=== PATIENT | female | born 1935 | race Caucasian/White ===

== ENCOUNTER 2017-03-16 16:31 | Inpatient (IN) | payer OTHER, MEDICARE ==
[~2017-03-16] VITALS: Ht 162.6 cm; Wt 87.0 kg
[~2017-03-16 16:31] MED LIST: ALEV220T14 PO; ASPI81TA82 PO; AZOR PO; BISO10TA2 PO; CALC-137 PO; FISH1000 PO; GLUCTAB PO; MELA3TAB23 PO; OMEP20CA5 PO; PRED1TAB PO; PROBCAP4 PO; PYRI60 PO; STOO100T PO; VERA40TA PO; VITA5000 PO
[2017-03-23] MEDS ORDERED: ONDANSETRON HCL 4 MG/2 ML VIAL IV PUSH ONE (12:00)
[2017-03-23] MEDS ORDERED: PROPOFOL 200 MG/20 ML AMP IV ONE (12:00)
[2017-03-23] MEDS ORDERED: NORMOSOL R INJ 1,000 ML IV ONE (12:00)
--- NOTE | 2017-03-23 12:54 | PD.HP.UP ---
H&P Update Note The Pre-Admit History and Physical Examination regarding the above named patient was reviewed (including, but not limited to, vital signs, heart, lungs, co-morbid conditions), and upon re-examination it is noted that: the patient's condition has not significantly changed since the last examination. Marcin Garcia MD Mar 23, 2017 12:54
[2017-03-23] MEDS ORDERED: PANC3600 PO (13:21)
[2017-03-23] MEDS ORDERED: FISH1200 PO (13:21)
[2017-03-23] MEDS ORDERED: CALC600T25 PO (13:21)
[2017-03-23] MEDS ORDERED: ASPI81TA81 PO (13:21)
[2017-03-23] MEDS ORDERED: VITA100064 PO (13:21)
[2017-03-23] MEDS ORDERED: LIDOCAINE 1%/EPINEPHrine 1:100,000 SOLN 20 ML VIAL ONE ×2 (13:26)
[2017-03-23] MEDS ORDERED: DEXT 5%-NACL 0.9% 1000 ML INJ 1,000 ML IV SCH (13:30)
[2017-03-23] MEDS ORDERED: LACTATED RINGER'S 1000 ML IV PRN (13:30)
[2017-03-23] MEDS ORDERED: METRONIDAZOLE 500 MG/100 ML ISONTONIC SOLN IV SCH (13:30)
[2017-03-23] MEDS ORDERED: ceFAZolin 1,000 MG/NS 100 ML IV SCH ×2 (13:30)
[2017-03-23] MEDS ORDERED: INSULIN HUMAN REGULAR 1,000 UNITS/10 ML VIAL SQ PRN (13:30)
[2017-03-23] MEDS ORDERED: CHLORHEXIDINE GLUCONATE 2 % 1 PACK (2 CLOTHS) TOPICAL PRN (13:30)
[2017-03-23] MEDS ORDERED: ALVIMOPAN 12 MG CAPSULE - On Call PO SCH (13:30)
[2017-03-23] MEDS ORDERED: METOPROLOL TARTRATE 25 MG TAB PO PRN (13:30)
[2017-03-23] MEDS ORDERED: POVIDONE IODINE 5% (ANTISEPSIS KIT) 4 APPLICATIONS EACH NARE PRN (13:30)
[2017-03-23] MEDS ORDERED: SODIUM CHLORID 0.9% 500 ML IV PRN (13:30)
[2017-03-23] MEDS ORDERED: AZOR10TA4 PO (13:34)
[2017-03-23] MEDS ORDERED: PRED2.5T PO (13:36)
[2017-03-23] MEDS ORDERED: PRED20 PO (13:36)
[2017-03-23 13:48] VITALS: BP 134/91; PULSE 103; RESP 18; TEMP 99; O2SAT 95
--- NOTE | 2017-03-23 13:53 | RADRPT ---
EXAM DATE/TIME: 03/23/2017 13:11 [place] COMPARISON: No previous studies available for comparison. INDICATIONS : Evaluate for pneumoina,pneumothorax and communicable disease surgery for rectal prolapes. MEDICAL HISTORY : None. SURGICAL HISTORY : None. ENCOUNTER: Initial ACUITY: 1 day PAIN SCORE: 0/10 LOCATION: Bilateral chest FINDINGS: A single view of the chest demonstrates the lungs to be symmetrically aerated without evidence of mas s, infiltrate or effusion. The cardiomediastinal contours are unremarkable. Osseous structures are intact. CONCLUSION: 1. Mild cardiomegaly. No acute abnormality identified. Danyel Blankenship MD on March 23, 2017 at 13:51 Board Certified Radiologist. This report was verified electronically.
[2017-03-23] MEDS ORDERED: SILVER SULFADIAZINE/LIDOCAINE CREAM 60 GM JAR EXTERNAL PRN (14:30)
[2017-03-23] MEDS ORDERED: FAMOTIDINE 20 MG/2 ML VIAL ONE (14:37)
[2017-03-23] MEDS ORDERED: DEXAMETHASONE SOD PHOS 4 MG/ML VIAL ONE (14:37)
[2017-03-23] MEDS ORDERED: MIDAZOLAM HCL 2 MG/2 ML VIAL ONE (14:37)
[2017-03-23] MEDS ORDERED: ACETAMINOPHEN 1000 MG/100 ML VIAL IV ONE (14:37)
[2017-03-23] MEDS ORDERED: SUGAMMADEX SODIUM 200 MG/2 ML VIAL IV PUSH ONE ×2 (16:27)
[2017-03-23] MEDS ORDERED: ACETAMINOPHEN 325 MG TAB PO PRN (17:00)
[2017-03-23] MEDS ORDERED: NALOXONE HCL 0.4 MG/ML AMP IV PRN (17:00)
[2017-03-23] MEDS ORDERED: ENALAPRILAT 1.25 MG/ML VIAL IV PRN (17:00)
[2017-03-23] MEDS ORDERED: Post-op Orders (for Pharmacy) MISC XX ONE (17:00)
[2017-03-23] MEDS ORDERED: ONDANSETRON HCL 4 MG/2 ML VIAL IV PRN (17:00)
[2017-03-23] MEDS ORDERED: NON-FORMULARY DRUG (Amlodipine-Olmesartan (Azor) 1 TAB) PO SCH (17:00)
[2017-03-23] MEDS ORDERED: BENZOCAINE 6 MG/MENTHOL 10 MG LOZENGE BUCCAL PRN (17:00)
[2017-03-23] MEDS ORDERED: POTASSIUM CHLOR 20 MEQ PREMIX 100 ML IV PRN (17:00)
[2017-03-23] MEDS ORDERED: ENALAPRILAT 2.5 MG/2 ML VIAL IV PRN (17:00)
[2017-03-23] MEDS ORDERED: MORPHINE SULFATE 30 MG/30 ML PCA IV SCH (17:00)
[2017-03-23] MEDS ORDERED: SODIUM CHLORIDE 0.9% FLUSH 5 ML FLUSH IVF PRN (17:00)
[2017-03-23] MEDS ORDERED: POTASSIUM CHLOR 40 MEQ PREMIX 100 ML IV PRN (17:00)
[2017-03-23] MEDS: D5-NS + KCL 20 MEQ INJ 1,000 ML IV SCH (17:30)
[2017-03-23] MEDS: LIPASE/PROTEASE/AMYLASE (12,000/38,000/60,000) CAP PO SCH (18:30)
[2017-03-23] MEDS: LOSARTAN 50 MG TAB PO SCH (18:30)
[2017-03-23] MEDS ORDERED: KETOROLAC TROMETHAMINE 30 MG/ML (IVP) VIAL IVP PRN (19:00)
[2017-03-23 20:00] VITALS: BP 133/78; PULSE 101; PULSE 99; RESP 18; TEMP 98.2; O2SAT 97
[2017-03-23] MEDS: SODIUM CHLORIDE 0.9% FLUSH 5 ML FLUSH IVF SCH (21:00)
[2017-03-23] MEDS: metroNIDAZOLE 500 MG INJ 100 ML IV SCH (21:26)
[2017-03-23] MEDS: METOCLOPRAMIDE HCL 10 MG/2 ML VIAL IVS SCH (21:26)
[2017-03-23] MEDS: PCA - TOTAL MG MORPHINE DELIVERED PER SHIFT SCH (21:57)
[2017-03-23 22:00] VITALS: PULSE 104
[2017-03-23] MEDS ORDERED: predniSONE 5 MG TAB PO SCH (22:00)
[2017-03-23 23:00] VITALS: PULSE 88
[2017-03-24] VITALS (9 sets, daily range): BP systolic 110–168; BP diastolic 67–79; PULSE 68–95; RESP 16–20; TEMP 97.9–98.7; O2SAT 94–97
[2017-03-24] MEDS: D5-NS + KCL 20 MEQ INJ 1,000 ML IV SCH ×2 (00:01→13:53)
[2017-03-24] MEDS: PCA - TOTAL MG MORPHINE DELIVERED PER SHIFT SCH ×3 (06:00→20:20)
[2017-03-24 06:23] LABS: AUTOMATED NEUTROPHIL # 10.1 TH/MM3 (1.8-7.7); BASOPHIL % 0.3 % (0.0-2.0); HEMATOCRIT 36.2 % (35.0-46.0); HEMO FLAGS DIFF FINAL; LYMPH % 5.5 % (9.0-44.0); LYMPHOCYTE # 0.6 TH/MM3 (1.0-4.8); MEAN CELL VOLUME 86.7 FL (80.0-100.0); MEAN CORPUSCULAR HEMOGLOBIN 28.7 PG (27.0-34.0); MONO % 4.5 % (0.0-8.0); NEUT % 89.7 % (16.0-70.0); PLATELET COUNT 228 TH/MM3 (150-450); RED BLOOD COUNT 4.18 MIL/MM3 (4.00-5.30); RED CELL DISTRIBUTION WIDTH 14.2 % (11.6-17.2); WHITE BLOOD COUNT 11.2 TH/MM3 (4.0-11.0)
[2017-03-24] MEDS: metroNIDAZOLE 500 MG INJ 100 ML IV SCH ×2 (06:27→15:08)
[2017-03-24 06:33] LABS: BICARBONATE 26.6 MEQ/L (21.0-32.0); POTASSIUM 4.2 MEQ/L (3.5-5.1)
--- NOTE | 2017-03-24 07:44 | HHI.PR ---
Subjective Remarks C/R Surg POD# 1 afebrile, VSS UO good Objective - Vital Signs Date Time Temp Pulse Resp B/P Pulse Ox O2 Delivery O2 Flow Rate FiO2 03/24/17 06:00 18 03/24/17 04:00 98.3 77 131/76 96 03/23/17 19:45 Nasal Cannula 3 Result Diagram: 03/24/17 0607 03/24/17 0607 Objective Remarks PE alert Abd - soft, wound dry, min tympany A/P Assessment and Plan Imp: stable post-op OOB start PO Marcin Garcia MD Mar 24, 2017 07:44
[2017-03-24] MEDS: LIPASE/PROTEASE/AMYLASE (12,000/38,000/60,000) CAP PO SCH ×3 (08:33→17:56)
[2017-03-24] MEDS: LOSARTAN 50 MG TAB PO SCH (08:33)
[2017-03-24] MEDS: ALVIMOPAN 12 MG CAPSULE - Post-op dosing PO SCH ×2 (08:34→20:19)
[2017-03-24] MEDS: PANTOPRAZOLE SOD 40 MG DELAYED RELEASE TAB PO SCH (08:34)
[2017-03-24] MEDS: PANTOPRAZOLE SODIUM 40 MG VIAL IVP SCH (08:35)
[2017-03-24] MEDS: SODIUM CHLORIDE 0.9% FLUSH 5 ML FLUSH IVF SCH ×2 (08:35→20:19)
[2017-03-24] MEDS: METOCLOPRAMIDE HCL 10 MG/2 ML VIAL IVS SCH ×2 (08:35→20:18)
--- NOTE | 2017-03-24 13:50 | EKG ---
Date Performed: 03/23/2017 Time Performed: 14:01:29 PTAGE: 81 years EKG: Sinus rhythm WITH FIRST DEGREE AV BLOCK NONSPECIFIC T-WAVE ABNORMALITY ABNORMAL ECG Compared to prior tracing no significant change PREVIOUS TRACING : 11/10/2011 12.45 DOCTOR: Huyen Cárdenas Interpretating Date/Time 03/24/2017 13:44:34
[2017-03-24] MEDS: ACETAMINOPHEN/HYDROcodone 325 MG/5 MG TAB PO PRN ×2 (15:28→20:19)
[2017-03-24] MEDS ORDERED: ALPRAZolam 0.25 MG TAB PO PRN (17:00)
[2017-03-24] MEDS ORDERED: ALVIMOPAN 12 MG CAPSULE PO SCH (21:00)
[2017-03-24] MEDS: FUROSEMIDE 20 MG/2 ML VIAL IV PUSH SCH (23:56)
[2017-03-25] VITALS (10 sets, daily range): BP systolic 144–163; BP diastolic 67–84; PULSE 75–104; RESP 17–20; TEMP 96.5–98.5; O2SAT 92–98
[2017-03-25] MEDS: ACETAMINOPHEN/HYDROcodone 325 MG/5 MG TAB PO PRN ×4 (03:22→23:14)
[2017-03-25] MEDS: PCA - TOTAL MG MORPHINE DELIVERED PER SHIFT SCH ×3 (04:48→21:05)
[2017-03-25 06:06] LABS: AUTOMATED NEUTROPHIL # 5.2 TH/MM3 (1.8-7.7); BASOPHIL # 0.1 TH/MM3 (0-0.2); BASOPHIL % 0.9 % (0.0-2.0); EOSINOPHIL # 0.1 TH/MM3 (0-0.4); EOSINOPHIL % 1.7 % (0.0-4.0); HEMATOCRIT 31.2 % (35.0-46.0); HEMO FLAGS DIFF FINAL; LYMPH % 18.7 % (9.0-44.0); LYMPHOCYTE # 1.4 TH/MM3 (1.0-4.8); MEAN CORPUSCULAR HEMOGLOBIN 29.5 PG (27.0-34.0); MEAN CORPUSCULAR HGB CONC 34.4 % (32.0-36.0); MONO % 7.5 % (0.0-8.0); NEUT % 71.2 % (16.0-70.0); PLATELET COUNT 189 TH/MM3 (150-450); RED BLOOD COUNT 3.63 MIL/MM3 (4.00-5.30); RED CELL DISTRIBUTION WIDTH 13.9 % (11.6-17.2); WHITE BLOOD COUNT 7.4 TH/MM3 (4.0-11.0)
[2017-03-25 06:25] LABS: BICARBONATE 28.2 MEQ/L (21.0-32.0); POTASSIUM 3.9 MEQ/L (3.5-5.1)
[2017-03-25] MEDS: PANTOPRAZOLE SOD 40 MG DELAYED RELEASE TAB PO SCH (08:17)
[2017-03-25] MEDS: predniSONE 20 MG TAB PO SCH (08:17)
[2017-03-25] MEDS: PANTOPRAZOLE SODIUM 40 MG VIAL IVP SCH (08:17)
[2017-03-25] MEDS: LIPASE/PROTEASE/AMYLASE (12,000/38,000/60,000) CAP PO SCH ×3 (08:17→18:30)
[2017-03-25] MEDS: SODIUM CHLORIDE 0.9% FLUSH 5 ML FLUSH IVF SCH ×2 (08:18→21:00)
[2017-03-25] MEDS: METOCLOPRAMIDE HCL 10 MG/2 ML VIAL IVS SCH ×2 (08:18→21:05)
[2017-03-25] MEDS: FUROSEMIDE 20 MG/2 ML VIAL IV PUSH SCH ×2 (08:18→21:04)
[2017-03-25] MEDS: ALVIMOPAN 12 MG CAPSULE - Post-op dosing PO SCH ×2 (08:18→21:11)
[2017-03-25] MEDS: LOSARTAN 50 MG TAB PO SCH (08:18)
[2017-03-25] MEDS ORDERED: PREDNISONE 2.5 MG PO SCH (09:00)
--- NOTE | 2017-03-25 10:22 | MP ---
cc: EVERARDO DESIR M.D. DATE OF SURGERY: 03/23/2017 PREOPERATIVE DIAGNOSIS Full-thickness rectal prolapse. PROCEDURE 1. Exam under anesthesia. 2. Exploratory laparotomy with rectopexy. POSTOPERATIVE DIAGNOSIS Full-thickness rectal prolapse. SURGEON Dr. Desir YEAST CULTURE OPERATOR SURGEON Dr. Suresh Petit DETAILS OF PROCEDURE The patient was placed in the supine position. After adequate general anesthesia her legs were placed in the lithotomy position and supported appropriately. The perineum was then prepped with Betadine solution and draped in the usual sterile fashion. The anal canal was dilated and Allis clamps were placed on the rectum and the prolapse was brought out of the anal canal. However, there appeared to be much more looseness anteriorly with the posterior part of the prolapse being fixed. The turning point of the prolapse was quite high and it was not easy to produce prolapse to consider a perineal repair. Therefore, the patient was repositioned to the supine position with the universal stirrups. The abdomen and perineum were then prepped with Betadine solution and re-dressed and re-draped in the sterile fashion. With Dr. Petit's assistance the abdomen was opened through a midline incision. There were quite a few adhesions to the parietal peritoneum and these were tediously taken down, freeing up the peritoneal space. After opening the abdomen the small bowel was run from the ligament of Treitz down to the ileocecal valve and felt to be pretty unremarkable. The liver had no palpable masses. The gallbladder had been surgically removed. The stomach and duodenum were normal. The uterus and ovaries were surgically absent. The sigmoid colon was somewhat redundant with a somewhat redundant loop. The cul-de-sac was quite deep consistent with her prolapse. First the sigmoid colon was mobilized medially by dividing along the white line of Toldt. The left ureter was identified and carefully preserved. Dissection then proceeded down into the pelvis mobilizing the rectosigmoid off the presacral fascia and preserving the mesentery. The right retroperitoneal space was then opened and the mobilization of the rectum completed down toward the pelvic floor. After full mobilization the rectopexy was performed by placing two 0 Prolene sutures on either side of the rectum, pexing it up to the sacral promontory. There was no narrowing of the bowel lumen and the tension on the rectum appeared to be adequate. Hemostasis in the presacral space was adequate. The abdomen was then irrigated copiously with normal saline. The midline incision was closed using a running #1 PDS suture, tacking the bladder up to the parietal peritoneum to prevent any bladder prolapse. The subcutaneous tissue was irrigated copiously and the skin closed with a running subcuticular Vicryl suture. The wound area was washed with normal saline and dried, sterile dressing of Telfa and gauze applied. The patient tolerated the procedure quite well and was brought to the recovery room in stable condition. MD KAILYN Fried/IZABELA /8:03 AM /10:15 AM
[2017-03-25] MEDS: D5-NS + KCL 20 MEQ INJ 1,000 ML IV SCH ×2 (13:47)
[2017-03-25] MEDS: ALPRAZolam 0.25 MG TAB PO PRN (21:01)
--- NOTE | 2017-03-25 23:05 | HHI.PR ---
Subjective Remarks C/R Surg POD# 2 afebrile, VSS UO good eun PO Objective - Vital Signs Date Time Temp Pulse Resp B/P Pulse Ox O2 Delivery O2 Flow Rate FiO2 03/25/17 22:15 97.8 103 17 163/84 92 03/24/17 19:29 21 03/23/17 19:45 Nasal Cannula 3 Result Diagram: 03/25/17 0513 03/25/17512 Objective Remarks PE alert Abd - soft, wound dry, min tympany wound clean A/P Assessment and Plan Imp: OOB start PO, adv dc Marcin Simpson MD Mar 25, 2017 23:04
[2017-03-26] MEDS: ACETAMINOPHEN/HYDROcodone 325 MG/5 MG TAB PO PRN ×4 (04:13→20:54)
[2017-03-26] MEDS: PCA - TOTAL MG MORPHINE DELIVERED PER SHIFT SCH (04:14)
[2017-03-26] MEDS: D5-NS + KCL 20 MEQ INJ 1,000 ML IV SCH ×2 (04:14→16:00)
[2017-03-26 08:00] VITALS: BP 163/80; PULSE 79; RESP 17; TEMP 97.4; O2SAT 92
[2017-03-26] MEDS: LIPASE/PROTEASE/AMYLASE (12,000/38,000/60,000) CAP PO SCH ×3 (08:37→17:32)
[2017-03-26] MEDS: ALVIMOPAN 12 MG CAPSULE - Post-op dosing PO SCH ×2 (08:37→20:53)
[2017-03-26] MEDS: PANTOPRAZOLE SOD 40 MG DELAYED RELEASE TAB PO SCH (08:37)
[2017-03-26] MEDS: PANTOPRAZOLE SODIUM 40 MG VIAL IVP SCH (08:38)
[2017-03-26] MEDS: LOSARTAN 50 MG TAB PO SCH (08:38)
[2017-03-26] MEDS: SODIUM CHLORIDE 0.9% FLUSH 5 ML FLUSH IVF SCH ×2 (08:38→20:54)
[2017-03-26] MEDS: METOCLOPRAMIDE HCL 10 MG/2 ML VIAL IVS SCH (08:38)
[2017-03-26] MEDS: FUROSEMIDE 20 MG/2 ML VIAL IV PUSH SCH (08:38)
[2017-03-26 12:00] VITALS: BP 129/68; PULSE 87; RESP 15; TEMP 96.7; O2SAT 92
--- NOTE | 2017-03-26 12:20 | HHI.PR ---
Subjective Remarks C/R Surg POD# 3 afebrile, VSS UO good enu PO liq stool Objective - Vital Signs Date Time Temp Pulse Resp B/P Pulse Ox O2 Delivery O2 Flow Rate FiO2 03/26/17 08:00 97.4 79 17 163/80 92 03/25/17 20:25 21 03/23/17 19:45 Nasal Cannula 3 Result Diagram: 03/25/1751203/25/17 0513 Objective Remarks PE alert Abd - soft, wound dry, min tympany wound clean A/P Assessment and Plan Imp: OOB start PO, adv PT dc plans Marcin Garcia MD Mar 26, 2017 12:20
[2017-03-26 16:00] VITALS: BP 130/70; PULSE 85; RESP 14; TEMP 97.6; O2SAT 93
[2017-03-26 20:08] VITALS: BP 138/66; PULSE 80; RESP 18; TEMP 97.3; O2SAT 95
[2017-03-26] MEDS: ALPRAZolam 0.25 MG TAB PO PRN (20:57)
[2017-03-26 23:57] VITALS: BP 158/79; PULSE 79; RESP 18; TEMP 97.1; O2SAT 97
[2017-03-27] MEDS: ACETAMINOPHEN/HYDROcodone 325 MG/5 MG TAB PO PRN ×5 (02:14→22:13)
[2017-03-27] MEDS: D5-NS + KCL 20 MEQ INJ 1,000 ML IV SCH ×2 (04:13→17:00)
[2017-03-27 08:00] VITALS: BP 140/73; PULSE 76; RESP 17; TEMP 97.3; O2SAT 95
[2017-03-27] MEDS: LIPASE/PROTEASE/AMYLASE (12,000/38,000/60,000) CAP PO SCH ×3 (08:23→18:05)
[2017-03-27] MEDS: ALVIMOPAN 12 MG CAPSULE - Post-op dosing PO SCH ×2 (08:23→22:13)
[2017-03-27] MEDS: predniSONE 20 MG TAB PO SCH (08:23)
[2017-03-27] MEDS: PANTOPRAZOLE SOD 40 MG DELAYED RELEASE TAB PO SCH (08:24)
[2017-03-27] MEDS: SODIUM CHLORIDE 0.9% FLUSH 5 ML FLUSH IVF SCH ×2 (08:24→22:10)
[2017-03-27] MEDS: LOSARTAN 50 MG TAB PO SCH (08:24)
[2017-03-27] MEDS: PANTOPRAZOLE SODIUM 40 MG VIAL IVP SCH (08:28)
[2017-03-27] MEDS ORDERED: FUROSEMIDE 20 MG/2 ML VIAL IV PUSH SCH (09:00)
[2017-03-27] MEDS ORDERED: HYDR-3516 PO (09:45)
--- NOTE | 2017-03-27 10:31 | HHI.PR ---
Subjective Remarks C/R Surg POD# 4 afebrile, VSS UO good eun PO liq stool Objective - Vital Signs Date Time Temp Pulse Resp B/P Pulse Ox O2 Delivery O2 Flow Rate FiO2 03/27/17 08:25 16 03/27/17 08:00 97.3 76 140/73 95 03/26/17 10:40 21 03/23/17 19:45 Nasal Cannula 3 Result Diagram: 03/25/1751203/25/17512 Objective Remarks PE alert Abd - soft, wound draining lower pole, min tympany wound clean A/P Assessment and Plan Imp: OOB start PO, adv reg PT dc plans - ?rehab Marcin Garcia MD Mar 27, 2017 10:31
[2017-03-27 12:00] VITALS: BP 133/76; PULSE 84; RESP 17; TEMP 98.1; O2SAT 93
[2017-03-27 16:00] VITALS: BP 109/69; PULSE 90; RESP 16; TEMP 97.8; O2SAT 93
[2017-03-27 20:20] VITALS: BP 117/66; PULSE 89; RESP 17; TEMP 96.6; O2SAT 96
[2017-03-27] MEDS: ALPRAZolam 0.25 MG TAB PO PRN (22:13)
[2017-03-28 00:06] VITALS: BP 132/74; PULSE 85; RESP 18; TEMP 98.3; O2SAT 97
[2017-03-28] MEDS: D5-NS + KCL 20 MEQ INJ 1,000 ML IV SCH (04:22)
[2017-03-28 06:05] LABS: AUTOMATED NEUTROPHIL # 4.7 TH/MM3 (1.8-7.7); BASOPHIL % 0.6 % (0.0-2.0); EOSINOPHIL # 0.3 TH/MM3 (0-0.4); EOSINOPHIL % 4.3 % (0.0-4.0); HEMATOCRIT 33.2 % (35.0-46.0); HEMO FLAGS DIFF FINAL; LYMPH % 21.1 % (9.0-44.0); LYMPHOCYTE # 1.5 TH/MM3 (1.0-4.8); MEAN CORPUSCULAR HEMOGLOBIN 28.9 PG (27.0-34.0); MEAN CORPUSCULAR HGB CONC 33.6 % (32.0-36.0); PLATELET COUNT 204 TH/MM3 (150-450); RED BLOOD COUNT 3.86 MIL/MM3 (4.00-5.30); RED CELL DISTRIBUTION WIDTH 13.8 % (11.6-17.2); WHITE BLOOD COUNT 7.2 TH/MM3 (4.0-11.0)
[2017-03-28 06:59] LABS: BICARBONATE 28.6 MEQ/L (21.0-32.0)
[2017-03-28 08:00] VITALS: BP 161/75; PULSE 68; RESP 20; TEMP 97.1; O2SAT 96
[2017-03-28] MEDS: PANTOPRAZOLE SOD 40 MG DELAYED RELEASE TAB PO SCH (08:07)
[2017-03-28] MEDS: LIPASE/PROTEASE/AMYLASE (12,000/38,000/60,000) CAP PO SCH ×2 (08:07→13:07)
[2017-03-28] MEDS: ALVIMOPAN 12 MG CAPSULE - Post-op dosing PO SCH (08:07)
[2017-03-28] MEDS: LOSARTAN 50 MG TAB PO SCH (08:07)
[2017-03-28] MEDS: PANTOPRAZOLE SODIUM 40 MG VIAL IVP SCH (08:07)
[2017-03-28] MEDS: SODIUM CHLORIDE 0.9% FLUSH 5 ML FLUSH IVF SCH (08:11)
[2017-03-28] MEDS: ACETAMINOPHEN/HYDROcodone 325 MG/5 MG TAB PO PRN ×2 (08:57→13:07)
[2017-03-28 12:00] VITALS: BP 119/65; PULSE 92; RESP 20; TEMP 97.3; O2SAT 96
[2017-03-28 16:00] VITALS: BP 119/65; PULSE 92; RESP 20; TEMP 97.3; O2SAT 96
== END 2017-03-28 17:30 | DRG 331 ==
LOC: HSDI 03-23 12:40 → HCIS 03-23 20:01 → N07B 03-24 11:19
PROVIDERS: ADMIT Colon & Rectal Surgery; ATTEND Colon & Rectal Surgery
PROC: 0DNW0ZZ Release Peritoneum, Open Approach (ICD-10-PCS; 2017-03-23)
PROC: 0DJDXZZ Inspection of Lower Intestinal Tract, External Approach (ICD-10-PCS; 2017-03-23)
PROC: 0DSP0ZZ Reposition Rectum, Open Approach (ICD-10-PCS; principal; 2017-03-23 14:42)
DX: K62.3 Rectal prolapse (principal); G70.00 Myasthenia gravis without (acute) exacerbation; K66.0 Peritoneal adhesions (postprocedural) (postinfection); I10 Essential (primary) hypertension; K21.9 Gastro-esophageal reflux disease without esophagitis; Z87.891 Personal history of nicotine dependence
CPT/HCPCS: 71010; 80048; 85025; 86850; 86900; 86901; 93005; 94150; C9113; J0131; J0690; J1100; J1940; J2250; J2270; J2405; J2765; J3010; J3480; J7120; J7512